=== PATIENT | male | born 1970 ===

== ENCOUNTER 2016-08-05 06:03 | Day surgery (SDC) | payer OTHER ==
[2016-08-02 10:30] VITALS: BMI 31.0
[2016-08-05] MEDS ORDERED: Lactated Ringer's 1,000 ML IV ONE ×2 (07:56→14:30)
[2016-08-05] MEDS ORDERED: Propofol 10 mg/ml Inj (20 ML) ONE (09:12)
[2016-08-05] MEDS ORDERED: Midazolam 2 MG/2 ML VIAL ONE (09:12)
[2016-08-05] MEDS ORDERED: Succinylcholine 200 mg/10 ml Inj IV ONE (09:13)
[2016-08-05] MEDS ORDERED: Bupivacaine 0.5% Inj(30mL) ONE (10:56)
[2016-08-05] MEDS ORDERED: Lidocaine 1% Inj (20ml) ONE (10:56)
[2016-08-05] MEDS ORDERED: MethylPREDNISolone Depo 40 mg/ml Inj ONE (10:56)
[2016-08-05] MEDS ORDERED: Bacitracin Ointment 30 GM TUBE ONE (10:57)
[2016-08-05] MEDS ORDERED: ePHEDrine 50 mg/ml Inj ONE (13:42)
[2016-08-05] MEDS ORDERED: Bacitracin OINT 15GM TOP ONE (14:20)
[2016-08-05] MEDS ORDERED: HYDROmorphone 0.5 mg/0.5 ml ISec IVP PRN (14:46)
[2016-08-05] MEDS ORDERED: HYDROmorphone 0.5 mg/0.5 ml ISec ONE ×2 (15:09→15:19)
--- NOTE | 2016-08-05 15:45 | PCM.SURG1 ---
Surgeon's Initial Post Op Note - Surgeon's Notes Surgeon: [employer] Specialist: RICHA Grewal Type of Anesthesia: General Endo, General LMA Anesthesia Administered By: DR mayorga Pre-Operative Diagnosis: Chrocnic lateral epicondylitis Operative Findings: as above Post-Operative Diagnosis: as above Operation Performed: Tennis elbow release. partial lateral epicondylectomy/ osteoplasty lateral humeral epicondyle. excision degnerated extensor carpi radialis brevis. partial excision orbicular ligament. applx posteruior splint Specimen/Specimens Removed: tendon/bone Estimated Blood Loss: EBL {In ML}: 10 Blood Products Given: N/A Drains Used: No Drains Post-Op Condition: Good Date of Surgery/Procedure: 08/05/16 Time of Surgery/Procedure: 13:45 (time in room 12:45 end 14:30)
[2016-08-05] MEDS ORDERED: Oxycodone/Acetaminophen 5/325 mg Tab PO PRN (16:33)
[2016-08-05 16:49] VITALS: RESP 18
[2016-08-05 17:57] VITALS: BP 122/69; PULSE 87; TEMP 98.4; O2SAT 97
--- NOTE | 2016-08-05 21:18 | OP ---
PROCEDURE DATE: 08/05/2016 PREOPERATIVE DIAGNOSIS: Refractory chronic lateral epicondylitis. POSTOPERATIVE DIAGNOSIS: Refractory chronic lateral epicondylitis. PROCEDURES: 1. Debridement of left tennis elbow/debridement extensor carpi radialis brevis tendon. 2. Medial epicondylar cystectomy/osteoplasty. 3. Partial resection, arthrotomy of the radiohumeral joint and partial resection of the orbicular li gament. 4. Application of posterior splint. SURGEON: Alex Medina MD DOPER: Sho Romero, Certified Registered Nursing Route Delivery Manager ANESTHESIA: General endotracheal anesthesia. COMPLICATIONS: None. DRAINS: None. 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 The patient developed lateral epicondylitis as a direct ____ result. The patient had developed a latera l epicondylitis. It has been refractory to a conservative approach consisting of anti-inflammatory m edication, injection and therapy. Pros, cons, risks and benefits of surgical approach were discussed . The patient can no longer stand the discomfort and wishes the surgery to be accomplished. OPERATIVE PROCEDURE: After having obtained informed consent, after thoroughly discussing the pros, c ons, risks and benefits, the possibility of mechanical failure, infection, secondary or tertiary surg theodora, nerve injury are discussed. The possibility of elbow stiffness is discussed. OPERATIVE PROCEDURE: After having obtained informed consent in the above fashion, with satisfactory induction of LMA general anesthesia by ____, after having identified side, site and procedure in a critical pause/timeout, the patient identified as the patient, in the supine position with all bony prominences well padded, the left upper extremity was prepped, free draped in usual fashion for uppe r extremity surgery. The operation is performed under eyeglass control, 2.0 times. This having been accomplished, the incision is ____, centered on the lateral epicondyle and extending 3 fingerbreadth s proximally, 3 fingerbreadths distally, superficial to the extensor carpi radialis brevis tendon. S kin incision is carried down through the skin and subcutaneous tissue. Hemostasis controlled with el ectrocautery. Stay sutures were employed. The soft tissues were dissected superficial to the latera l epicondyle. The extensor carpi radialis longus is carefully divided using #15 blade and the underl kimmy extensor carpi radialis brevis is found to have marked degeneration in the tendon. The degenera tion in the tendon of the extensor carpi radialis brevis is debrided using #15 blade. At this point in time, a portion of the orbicular ligament is found to be degenerated as well. A portion of the or bicular ligament is resected. The operation is performed with the forearm in pronation to avoid inju ry to the posterior interosseous branch of the radial nerve. This having been accomplished, with AO Hohmann retractors exposing the lateral epicondyle, using the small oscillating saw a partial lateral epicondylectomy is accomplished. This was followed by osteoplasty using a sarah. The wound is thoro ughly irrigated. Bone wax is applied. At this point in time, the extensor carpi radialis longus is repaired using interrupted inverted 0 FiberWire. The wound was thoroughly irrigated, hemostasis cont rolled, followed by 0 FiberWire, Vicryl, and closure is in layers with 0 Quill and 2-0 Quill plastic closure. Intra-articular injection is offered. Alex Martini compression dressing and posterior spli nt is applied. OPERATIVE PROCEDURE: 1. Release tennis elbow/excision and debridement of degeneration of the extensor carpi radialis brev is tendon. 2. Partial lateral epicondylectomy and osteoplasty. 3. Arthrotomy radiohumeral joint and excision of the orbicular ligament. This having been accomplis hed, the intraarticular injection, application of Alex Martini compression dressing and posterior spl int. Alex Medina MD cc: [id number] TT: 08/05/2016 21:17:41 sn
== END 2016-08-05 19:40 | disposition home or self-care (01) ==
LOC: H.OPSURG 06:03
PROVIDERS: ATTEND Orthopaedic Surgery
DX: M77.12 Lateral epicondylitis, left elbow (principal)